=== PATIENT | female | born 1975 | race Two or more races ===

== ENCOUNTER 2022-01-09 10:49 | Emergency (ER) | payer SELFPAY ==
[2022-01-09 11:05] VITALS: BP 116/76; PULSE 86; TEMP 97.9; BMI 28.8
[2022-01-09] MEDS ORDERED: KETOROLAC TROMETHAMINE 30 MG/1 ML VIAL IM ONE (13:28)
[2022-01-09] MEDS ORDERED: KETOROLAC TROMETHAMINE 30 MG/1 ML VIAL ONE (13:34)
== END 2022-01-09 13:40 | disposition home or self-care (01) ==
LOC: JERFT 10:49
PROC: 3E0233Z Introduction of Anti-inflammatory into Muscle, Percutaneous Approach (ICD-10-PCS; principal; 2022-01-09)
DX: S46.912A Strain of unspecified muscle, fascia and tendon at shoulder and upper arm level, left arm, initial encounter (principal); X50.0XXA Overexertion from strenuous movement or load, initial encounter
CPT/HCPCS: 73070-TC-LT-FY; 99284-25

== ENCOUNTER 2023-10-01 09:05 | Emergency (ER) | payer OTHER ==
[2023-10-01 09:25] VITALS: BP 110/50; PULSE 87; RESP 18; TEMP 98.6; BMI 27.9
[2023-10-01] MEDS ORDERED: KETOROLAC TROMETHAMINE 30 MG/1 ML VIAL IM ONE (09:46)
[2023-10-01] MEDS ORDERED: KETOROLAC TROMETHAMINE 30 MG/1 ML VIAL ONE (09:48)
== END 2023-10-01 10:27 | disposition home or self-care (01) ==
LOC: JER 09:05
PROC: 3E0233Z Introduction of Anti-inflammatory into Muscle, Percutaneous Approach (ICD-10-PCS; principal; 2023-10-01)
DX: M25.521 Pain in right elbow (principal)
CPT/HCPCS: 96372; 99284-25